=== PATIENT | male | born 1985 | race Caucasian/White ===

== ENCOUNTER 2016-11-18 01:40 | Emergency (ER) | payer OTHER ==
[~2016-11-18] VITALS: Ht 193 cm; Wt 127.3 kg
[2016-11-18 01:43] VITALS: BP 134/96; PULSE 63; TEMP 98
[2016-11-18] MEDS ORDERED: NORCO 325 MG-7.1 TAB PO (01:52)
[2016-11-18] MEDS ORDERED: CELEBREX 1100 MG/CAP PO (01:52)
[2016-11-18] MEDS ORDERED: ADVIL200 MG PO (01:53)
[2016-11-18 02:54] LABS: PH 5 (5-8); SQUAMOUS EPITHELIAL None Seen /hpf; URINE APPEARANCE Clear; URINE BACTERIA None Seen /hpf; URINE BILIRUBIN Negative (NEGATIVE); URINE BLOOD Negative (NEGATIVE); URINE COLOR Yellow; URINE GLUCOSE Negative (NEGATIVE); URINE KETONE Negative (NEGATIVE); URINE RBC None Seen /hpf; URINE UROBILINOGEN Negative (NEGATIVE); URINE WBC 0-2 /hpf
== END 2016-11-18 03:00 | disposition home or self-care (01) ==
LOC: COL.ER 01:40
PROVIDERS: Nurse Practitioner
DX: M54.5 Low back pain (principal); I10 Essential (primary) hypertension
CPT/HCPCS: J3360